=== PATIENT | male | born 1995 | race Caucasian/White ===

== ENCOUNTER 2016-08-28 10:08 | Emergency (ER) | payer OTHER ==
[2016-08-28 10:36] VITALS: BP 123/51
--- NOTE | 2016-08-28 11:57 | UC ---
Respiratory Complaint HPI - HPI Summary HPI Summary: 21 male presents with complaints of cough, headache, fever and nasal congestion that began 3 weeks ago and has been worsening. Patient has been taking Robitussin without relief. He has been unable to sleep due to the cough keeping him up and having coughing fits. States he woke up this morning with a fever of 101F that he took orally. Has not taken any other medication than robitussin. States the cough has become more productive and violent of the last week. Production of a green to yellow, mucus appearing sputum. Denies hemoptysis, chest pain, difficulty breathing and SOB. No recent travel. Denies asthma. Does have seasonal allergies. - History of Current Complaint Chief Complaint: UCGeneralIllness Stated Complaint: FEVER,COUGH Time Seen by Provider: 08/28/16 11:41 Hx Obtained From: Patient Onset/Duration: Sudden Onset, Lasting Weeks - 3+ weeks, "since ", Still Present, Worse Since Severity Initially: Mild Severity Currently: Moderate Character: Cough: Productive - yellow/green mucus like, thick Aggravating Factors: Recumbent Position Alleviating Factors: Upright Position, Nothing Associated Signs And Symptoms: Positive: Fever, Chills, URI, Nasal Congestion. Negative: Pleuritic Chest Pain, Wheezing, Hemoptysis, Dizziness, Calf Pain, Calf Swelling, Edema, Hoarseness, Sinus Discomfort - Risk Factors Pulmonary Embolism Risk Factors: Negative Cardiac Risk Factors: Negative Pseudomonas Risk Factors: Negative Tuberculosis Risk Factors: Negative - Allergies/Home Medications Allergies/Adverse Reactions: Allergies Allergy/AdvReac Type Severity Reaction Status Date / Time Clarithromycin [From Biaxin] Allergy Difficulty Verified 08/28/16 10:31 Breathing/Wheezing Erythromycin Allergy Difficulty Verified 08/28/16 10:31 Breathing/Wheezing Levofloxacin [From Levaquin] Allergy Unknown Verified 08/28/16 10:31 Reaction Details Penicillins [PCN] Allergy Difficulty Verified 08/28/16 10:31 Breathing/Wheezing Home Medications: Home Medications Guaifenesin [Tussin Adult] 10 ml PO Q6H PRN 08/28/16 [History Confirmed 08/28/16 ] PMH/Surg Hx/FS Hx/Imm Hx Endocrine History Of: Denies: Diabetes Respiratory History Of: Denies: Asthma GI/ History Of: Denies: Gastroesophageal Reflux - Surgical History Surgical History: Yes Surgery Procedure, Year, and Place: ear tubes 2000 - Family History Known Family History: Positive: None - Social History Alcohol Use: Weekly Substance Use Type: None Smoking Status (MU): Never Smoked Tobacco - Immunization History Vaccination Up to Date: Yes Review of Systems Constitutional: Fever, Chills Skin: Negative Eyes: Negative ENT: Nasal Discharge Respiratory: Cough - productive Cardiovascular: Negative Gastrointestinal: Negative Motor: Negative Neurovascular: Negative Musculoskeletal: Negative Neurological: Headache All Other Systems Reviewed And Are Negative: Yes Physical Exam Triage Information Reviewed: Yes Appearance: Well-Appearing, No Pain Distress, Well-Nourished Vital Signs: Initial Vital Signs Temp 98.5 F 08/28/16 10:32 Pulse 113 08/28/16 10:32 Resp 18 08/28/16 10:32 BP 123/51 08/28/16 10:32 Pulse Ox 99 08/28/16 10:32 tachycardia noted, normal O2 sat Vital Signs Reviewed: Yes Eyes: Positive: Conjunctiva Clear ENT: Positive: Normal ENT inspection, Hearing grossly normal, Pharyngeal erythema, Nasal congestion, Nasal drainage, TMs normal. Negative: Tonsillar swelling, Tonsillar exudate, Trismus, Muffled/hoarse voice Dental Exam: Normal Neck: Positive: Supple, Nontender, No Lymphadenopathy Respiratory: Positive: Chest non-tender, Lungs clear, Normal breath sounds, No respiratory distress, No accessory muscle use. Negative: Respiratory distress, Decreased breath sounds, Crackles, Rhonchi, Stridor, Wheezing, Plerual rub Cardiovascular: Positive: RRR, No Murmur, Pulses Normal, Brisk Capillary Refill , Tachycardia Abdominal Exam: Normal Abdomen Description: Positive: Nontender, No Organomegaly, Soft Bowel Sounds: Positive: Present Musculoskeletal: Positive: Strength Intact, ROM Intact Neurological: Positive: Alert Skin Exam: Normal UC Diagnostic Evaluation - Laboratory O2 Sat by Pulse Oximetry: 99 Respiratory Course/Dx - Course Course Of Treatment: patient given steroid dose while in office to help with inflammation and constant coughing. due to length of symptoms, PE findings and HPI patient will be given antibitoics, flonase and recommended mucinex and saline rinses. Follow up with PCP. Aware of worsneing signs and symptoms to watch out and to return if develop. - Differential Dx/Diagnosis Differential Diagnosis/HQI/PQRI: Bronchitis, Influenza, Laryngitis, Lower Resp Infection, Sinusitis, Other Provider Diagnoses: Acute Bronchitis, URI Discharge - Discharge Plan Condition: Stable Disposition: HOME Prescriptions: Cefdinir [Cefdinir 300 MG CAP] 300 mg PO BID #14 cap Fluticasone NASAL SPRAY 50MCG* [Flonase NASAL SPRAY 50MCG*] 2 spray BOTH NARES DAILY #1 btl Patient Education Materials: Acute Bronchitis (ED) Referrals: Non Staff,Doctor [Primary Care Provider] - Additional Instructions: Take prescribed antibiotic medication as directed. Discontinue use if you develop signs of allergic reaction. Use prescribed nasal spray as directed. Take over the counter Mucinex during the day and Robitussin at night to help with cough. OR antihistamine such as Claritin/Zyrtec. If symptoms worsen or do not improve please return. Drink plenty of fluids and get plenty of rest. Cover mouth and wash hands frequently to prevent spread of germs. Follow up with PCP.
[2016-08-28] MEDS ORDERED: predniSONE TAB* 20 MG PO ONE (12:05)
== END 2016-08-28 12:21 | disposition home or self-care (01) ==
LOC: UCCORT 10:08
DX: J20.9 Acute bronchitis, unspecified (principal); J06.9 Acute upper respiratory infection, unspecified; Z88.1 Allergy status to other antibiotic agents; Z88.0 Allergy status to penicillin
CPT/HCPCS: 99202; G0463; J7512